=== PATIENT | male | born 1985 | race Caucasian/White ===

== ENCOUNTER 2018-12-10 18:01 | Emergency (ER) | payer OTHER ==
[2018-12-10 18:13] VITALS: BP 130/76; PULSE 56; TEMP 98.4; BMI 25.1
--- NOTE | 2018-12-10 18:15 | PDOC ---
Rapid Medical Evaluation Chief Complaint: Injury Medical Evaluation: Allergies Allergy/AdvReac Type Severity Reaction Status Date / Time No Known Allergies Allergy Verified 09/18/15 05:58 12/10/18 18:12 I have performed a brief in-person evaluation of this patient. The patient presents with a chief complaint of:YFD- fell backwards carrying hose/ c/o pain and spasm to neck upper back Pertinent physical exam findings: tense tight muscles I have ordered the following: none The patient will proceed to the ED for further evaluation. Discharge Disposition - Diagnosis Back pain - Referrals - Patient Instructions - Post Discharge Activity
[2018-12-10] MEDS ORDERED: KETOROLAC TROMETHAMINE 60 MG/2 ML VIAL IM ONE (19:05)
[2018-12-10] MEDS ORDERED: KETOROLAC TROMETHAMINE 60 MG/2 ML VIAL ONE (19:06)
--- NOTE | 2018-12-10 19:08 | PDOC ---
History of Present Illness - General Chief Complaint: Injury Stated Complaint: BACK PAIN JOB INJURY Time Seen by Provider: 12/10/18 18:45 - History of Present Illness Initial Comments: 12/10/18 19:05 33-year-old male without comorbidities presents for evaluation of neck pain after a fall today at work. While carrying a firehose. Past History - Past Medical History Allergies/Adverse Reactions: Allergies Allergy/AdvReac Type Severity Reaction Status Date / Time No Known Allergies Allergy Verified 12/10/18 18:13 Home Medications: Ambulatory Orders Cyclobenzaprine HCl [Flexeril 10 mg] 10 mg PO HS PRN #10 tablet 12/10/18 Ibuprofen [Motrin -] 600 mg PO TID #30 tablet 12/10/18 COPD: No - Immunization History Immunization Up to Date: Yes - Suicide/Smoking/Psychosocial Hx Smoking History: Never smoked Have you smoked in the past 12 months: No Information on smoking cessation initiated: No Hx Alcohol Use: Yes Drug/Substance Use Hx: No Review of Systems - Review of Systems Musculoskeletal: Yes: Back Pain, Neck Pain *Physical Exam - Vital Signs Last Vital Signs Temp Pulse Resp BP Pulse Ox 98.4 F 56 L 18 130/76 98 12/10/18 18:11 12/10/18 18:11 12/10/18 18:11 12/10/18 18:11 12/10/18 18:11 - Physical Exam Comments: 12/10/18 19:06 Cervical spine skin color and temperature are normal. Range of motion is full. There is no midline tenderness moderate right and left sided paracervical musculature spasm and tenderness. 5 out of 5 strength in bilateral upper extremities without gross sensorimotor deficits. He is neurovascularly intact. Negative Spurling maneuver bilaterally. Upper from the compartments are soft and nontender. Moderate Sedation - Procedure Monitoring Vital Signs: Procedure Monitoring Vital Signs Temperature 98.4 F 12/10/18 18:11 Pulse Rate 56 L 12/10/18 18:11 Respiratory Rate 18 12/10/18 18:11 Blood Pressure 130/76 12/10/18 18:11 O2 Sat by Pulse Oximetry (%) 98 12/10/18 18:11 *DC/Admit/Observation/Transfer Diagnosis at time of Disposition: Cervical strain Diagnosis at time of Disposition: (Ruled Out): Back pain - Discharge Dispostion Disposition: HOME Condition at time of disposition: Stable Decision to Admit order: No - Prescriptions Prescriptions: Cyclobenzaprine HCl [Flexeril 10 mg] 10 mg PO HS PRN #10 tablet PRN Reason: Muscle Spasms Ibuprofen [Motrin -] 600 mg PO TID #30 tablet - Referrals Referrals: Chaitanya Yan MD [Staff Physician] - - Patient Instructions Printed Discharge Instructions: DI for Cervical Muscle Strain Additional Instructions: Return to the emergency room should symptoms worsen or go unresolved. Please follow-up with spine surgery one to 2 days for further evaluation and treatment options. The anti-inflammatory as one tablet 3 times a day with food. Discontinue the medication if it bothers her stomach. The muscle relaxers one tablet before bedtime and we'll make you sleepy. - Post Discharge Activity
== END 2018-12-10 19:26 | disposition home or self-care (01) ==
LOC: JERFT 18:01
PROC: 3E0233Z Introduction of Anti-inflammatory into Muscle, Percutaneous Approach (ICD-10-PCS; principal; 2018-12-10)
DX: S16.1XXA Strain of muscle, fascia and tendon at neck level, initial encounter (principal); W18.39XA Other fall on same level, initial encounter; X50.0XXA Overexertion from strenuous movement or load, initial encounter; Y93.89 Activity, other specified; Y92.89 Other specified places as the place of occurrence of the external cause; Y99.0 Civilian activity done for income or pay
CPT/HCPCS: 99281-25

== ENCOUNTER 2021-04-05 15:40 | Emergency (ER) | payer OTHER ==
[2021-04-05 15:45] VITALS: BP 124/74; PULSE 66; TEMP 98.9; BMI 23.6
[2021-04-05] MEDS ORDERED: IBUPROFEN 600 MG TABLET (FP) PO ONE ×2 (16:21→16:42)
== END 2021-04-05 17:05 | disposition home or self-care (01) ==
LOC: JERFT 15:40
DX: M25.522 Pain in left elbow (principal)
CPT/HCPCS: 73070-TC-LT-FY; 99283-25

== ENCOUNTER 2024-05-09 17:58 | Emergency (ER) | payer OTHER ==
[2024-05-09 18:12] VITALS: BP 115/79; PULSE 76; RESP 18; BMI 25.1
[2024-05-09] MEDS ORDERED: KETOROLAC TROMETHAMINE 30 MG/1 ML VIAL ONE (19:53)
[2024-05-09] MEDS: KETOROLAC TROMETHAMINE 30 MG/1 ML VIAL IVPUSH ONE (19:59)
[2024-05-09] MEDS: SODIUM CHLORIDE 1,000 ML IV STA (19:59)
[2024-05-09] MEDS: ACETAMINOPHEN 1000 MG/100 ML BAG IVPB ONE (19:59)
[2024-05-09 20:11] LABS: VENOUS BASE EXCESS 0.8 mmol/L (-2-2); VENOUS O2 SATURATION 72.2 % (70-80); VENOUS PCO2 45.2 mmHg (38-52); VENOUS PH 7.384 (7.310-7.410)
[2024-05-09 20:16] LABS: HEMATOCRIT 44.3 % (35.4-49); MCH 29.3 pg (25.7-33.7); MEAN CELL VOLUME 86.1 fl (80-96); MEAN PLT VOLUME 7.5 fl (7.5-11.1); PLATELET COUNT 245 10^3/uL (134-434); RBC 5.14 M/mm3 (4.00-5.60); RDW 13.1 % (11.9-15.9); WHITE BLOOD COUNT 9.8 K/mm3 (4.0-10.0)
[2024-05-09 20:31] LABS: POTASSIUM 3.6 mmol/L (3.5-5.1)
[2024-05-09 20:33] LABS: ALBUMIN 4.5 g/dl (3.4-5.0); BLOOD UREA NITROGEN 21.5 mg/dL (7-18); CALCIUM 9.3 mg/dL (8.5-10.1)
[2024-05-09 20:36] LABS: CREATININE 1.3 mg/dL (0.55-1.3)
[2024-05-09 20:38] LABS: BILIRUBIN,TOTAL 0.6 mg/dL (0.2-1); TOT PROT 7.6 g/dl (6.4-8.2)
== END 2024-05-09 20:51 | disposition home or self-care (01) ==
LOC: JERFT 17:58 → JER 17:58 → JERFT 20:51
PROC: 3E0333Z Introduction of Anti-inflammatory into Peripheral Vein, Percutaneous Approach (ICD-10-PCS; principal; 2024-05-09)
PROC: 3E0337Z Introduction of Electrolytic and Water Balance Substance into Peripheral Vein, Percutaneous Approach (ICD-10-PCS; 2024-05-09)
DX: M54.9 Dorsalgia, unspecified (principal); M54.2 Cervicalgia; T59.811A Toxic effect of smoke, accidental (unintentional), initial encounter; X00.1XXA Exposure to smoke in uncontrolled fire in building or structure, initial encounter; Y35.811A Legal intervention involving manhandling, law enforcement official injured, initial encounter; Y99.0 Civilian activity done for income or pay
CPT/HCPCS: 36415; 72070-TC-FY; 80053; 82803; 85027; 99284-25

== ENCOUNTER 2024-09-20 13:21 | Emergency (ER) | payer OTHER ==
[2024-09-20 13:38] VITALS: BP 139/102; PULSE 87; RESP 20; TEMP 98.2; BMI 26.8
[2024-09-20 14:53] LABS: BILIRUBIN,TOTAL 0.8 mg/dl (0.2-1); CALCIUM 9.8 mg/dl (8.5-10.1); CREATININE 1.1 mg/dl (0.6-1.3); HEMATOCRIT 50.5 % (35.4-49); HEMOGLOBIN 16.3 G/dL (11.7-16.9); MCH 29.2 pg (25.7-33.7); MCHC 32.3 g/dl (32.0-35.9); MEAN CELL VOLUME 90.1 fl (80-96); MEAN PLT VOLUME 7.8 fl (7.5-11.1); PHOSPHOROUS 3.5 (2.5-4.9); PLATELET COUNT 248.7 10^3/uL (134-434); POTASSIUM 4.3 mmol/L (3.5-5.1); TOT PROT 7.6 g/dl (6.4-8.2); WHITE BLOOD COUNT 8.7 10^3/uL (4.0-10.8)
[2024-09-20 15:44] LABS: PLATELET ESTIMATE ADEQUATE
[2024-09-20 19:49] LABS: HIV INTERPRETATION NEGATIVE (NEGATIVE)
== END 2024-09-20 14:28 | disposition home or self-care (01) ==
LOC: FER 13:21
DX: Z77.21 Contact with and (suspected) exposure to potentially hazardous body fluids (principal)
CPT/HCPCS: 36415; 80053; 82465; 82977; 84100; 85025; 86704; 86803; 87340; 87389; 87517; 99283-25

== ENCOUNTER 2025-02-15 19:18 | Emergency (ER) | payer OTHER ==
[2025-02-15 19:31] VITALS: BP 106/66; PULSE 86; RESP 16; TEMP 99.2; BMI 25.8
[2025-02-15] MEDS ORDERED: METHOCARBAMOL 500 MG TABLET ONE (20:27)
[2025-02-15] MEDS ORDERED: IBUPROFEN 600 MG TABLET (FP) PO ONE (20:27)
[2025-02-15] MEDS ORDERED: ACETAMINOPHEN 500 MG TABLET (FP) ONE (20:28)
[2025-02-15] MEDS: ACETAMINOPHEN 500 MG TABLET (FP) PO ONE (20:42)
[2025-02-15] MEDS: METHOCARBAMOL 500 MG TABLET PO ONE (20:42)
[2025-02-15] MEDS: IBUPROFEN 400 MG TABLET (FP) PO ONE (20:42)
== END 2025-02-15 23:43 | disposition home or self-care (01) ==
LOC: JER 19:18
DX: T20.07XA Burn of unspecified degree of neck, initial encounter (principal); X00.0XXA Exposure to flames in uncontrolled fire in building or structure, initial encounter; W01.198A Fall on same level from slipping, tripping and stumbling with subsequent striking against other object, initial encounter; W20.8XXA Other cause of strike by thrown, projected or falling object, initial encounter
CPT/HCPCS: 70450-TC; 72125-TC; 73110-TC-LT-FY; 73130-TC-LT-FY; 99284-25